=== PATIENT | female | born 2000 | race Caucasian/White ===

== ENCOUNTER 2019-05-03 18:12 | Observation (INO) | payer OTHER ==
[~2019-05-03] VITALS: Ht 154.9 cm; Wt 58.4 kg
[2019-05-03] MEDS ORDERED: FAMOTIDINE 20 MG TABLET ONE (19:15)
[2019-05-03] MEDS ORDERED: ONDANSETRON ODT 4 MG ONE (19:16)
[2019-05-03] MEDS ORDERED: MAALOX/HYOSCYAMINE/LIDOCAINE 45 ML BTL ONE (19:16)
--- NOTE | 2019-05-03 19:23 | NUR ---
MEDICATED PER EMAR UA SENT
[2019-05-03] MEDS ORDERED: MAALOX/HYOSCYAMINE/LIDOCAINE 45 ML BTL PO ONE (19:30)
[2019-05-03] MEDS ORDERED: PLEASE ENTER ALLERGIES MC SCH (19:30)
[2019-05-03] MEDS ORDERED: FAMOTIDINE 20 MG TABLET PO ONE (19:30)
[2019-05-03] MEDS ORDERED: ONDANSETRON ODT 4 MG PO ONE (19:30)
--- NOTE | 2019-05-03 19:40 | NUR ---
LAB AT BEDSIDE
--- NOTE | 2019-05-03 19:45 | NUR ---
WITH REASSESSMENT-PATIENT REPORTS "I STILL FEEL NAUSEATED 7AND MY ABD PAIN IS STILL 7/10 (UCHANGED) PROVIDER MADE AWARE
[2019-05-03 19:53] LABS: ALANINE AMINOTRANSFERASE 28 U/L (12-78); ALBUMIN 4.1 g/dL (3.4-5.0); ANION GAP 11 mmol/L (5-15); CALCIUM 9.7 mg/dL (8.5-10.1); CHLORIDE 104 mmol/L (98-107); CREATININE 0.86 mg/dL (0.55-1.02)
[2019-05-03 19:58] LABS: ALKALINE PHOSPHATASE 77 U/L (45-117); BILIRUBIN,TOTAL 0.6 mg/dL (0.2-1.0); TOTAL PROTEIN 8.3 g/dL (6.4-8.2)
[2019-05-03] MEDS ORDERED: DICYCLOMINE 10 MG/ML, 2ML IM ONE (20:00)
[2019-05-03] MEDS ORDERED: PROMETHAZINE 25 MG/ML, 1ML IM ONE ×2 (20:00)
[2019-05-03 20:05] LABS: MEAN CORPUSCULAR HEMOGLOBIN 31.2 pg (27.0-34.8); MEAN CORPUSCULAR VOLUME 89.3 fL (80-100); MEAN PLATELET VOLUME 7.8 fL (7.4-10.4); PLATELET COUNT 301 x10^3/uL (130-400); RED CELL DISTRIBUTION WIDTH 12.6 % (9.6-15.2)
[2019-05-03 20:09] LABS: MICROSCOPIC INDICATED
[2019-05-03] MEDS ORDERED: DICYCLOMINE 10 MG/ML, 2ML ONE (20:09)
[2019-05-03] MEDS ORDERED: PROMETHAZINE 25 MG/ML, 1ML ONE (20:09)
[2019-05-03 20:20] LABS: CULTURE INDICATED? NO
--- NOTE | 2019-05-03 20:20 | NUR ---
Medicated per emar for continued nausea/abd pain
[2019-05-03 20:25] LABS: BASOPHILS # (AUTO) 0.02 x10^3/uL (0-0.1); BASOPHILS % (AUTO) 0 % (0-1); EOSINOPHILS # (AUTO) 0.03 x10^3/uL (0-0.4); EOSINOPHILS % (AUTO) 0 % (1-7); LYMPHOCYTES # (AUTO) 0.58 x10^3/uL (1-3.4); LYMPHOCYTES % (AUTO) 3 % (22-44); MD SCAN; MONOCYTES # (AUTO) 0.45 x10^3/uL (0.2-0.8); MONOCYTES % (AUTO) 2 % (2-9); NEUTROPHILS # (AUTO) 17.74 x10^3/uL (1.8-6.8); NEUTROPHILS % (AUTO) 94 % (42-75)
--- NOTE | 2019-05-03 20:29 | NUR ---
Note bipin in ED - 05/03/19 at 2030 by RFRUHLING avitene pressure dressing applied
[2019-05-03] MEDS ORDERED: SODIUM CHLORIDE 0.9% 1,000ML IVBOLUS ONE (20:30)
[2019-05-03] MEDS ORDERED: SODIUM CHLORIDE FLUSH 10ML SYR IVF ONE (20:30)
--- NOTE | 2019-05-03 20:42 | NUR ---
piv placed-1l ns strated per emar
[2019-05-03 20:43] VITALS: BP 132/78
[2019-05-03] MEDS ORDERED: OMNIPAQUE 350 MG/ML, 100ML BOTTLE ONE (20:56)
[2019-05-03] MEDS ORDERED: CEFOTETAN PMX 1GM/50ML 50 ML IVPB ONE (21:30)
[2019-05-03] MEDS ORDERED: CEFOTETAN PMX 1GM/50ML 50 ML ONE (21:40)
[2019-05-03] MEDS ORDERED: BUPIVACAINE/EPI 0.5% 1:200K ONE ×2 (21:42→21:52)
--- NOTE | 2019-05-03 21:43 | NUR ---
1l ns complete last meal 11am abx administered per emar at 2142 Report to Royce morgan in [place] @ 2139
[2019-05-03] MEDS ORDERED: ONDANSETRON 2MG/ML, 2ML ONE ×2 (21:45→22:22)
--- NOTE | 2019-05-03 21:51 | NUR ---
TRANSFER TO [place] WITH CEFOTAN AT 2150
--- NOTE | 2019-05-03 21:51 | NUR ---
medicated per emar with 4mg of zofran for continued nausea prior to transfer to [place]
[2019-05-03] MEDS ORDERED: MIDAZOLAM 1 MG/ML, 2ML ONE (22:15)
[2019-05-03] MEDS ORDERED: FENTANYL PF 100 MCG/2ML ONE (22:15)
[2019-05-03] MEDS ORDERED: SUCCINYLCHOLINE 20 MG/ML, 10ML ONE (22:22)
[2019-05-03] MEDS ORDERED: PROPOFOL 10 MG/ML, 50ML ONE (22:22)
[2019-05-03] MEDS ORDERED: DEXAMETHASONE 4 MG/ML, 1ML ONE (22:22)
[2019-05-03] MEDS ORDERED: ROCURONIUM 10 MG/ML,10ML ONE (22:22)
[2019-05-03] MEDS ORDERED: PROPOFOL 10 MG/ML, 20ML ONE (22:22)
[2019-05-03] MEDS ORDERED: SUGAMMADEX 200 MG/2 ML IVPush ONE (22:46)
[2019-05-03] MEDS ORDERED: MEPERIDINE/PF 50 MG/ML ONE (22:53)
[2019-05-03] MEDS ORDERED: ACETAMINOPHEN 325 MG TABLET PO PRN (23:00)
[2019-05-03] MEDS ORDERED: hydrALAzine 20 MG/ML, 1ML IV PRN (23:00)
[2019-05-03] MEDS ORDERED: DIAZEPAM 5 MG/ML, 2ML IVPush PRN (23:00)
[2019-05-03] MEDS ORDERED: PROMETHAZINE 25 MG/ML, 1ML IV PRN (23:00)
[2019-05-03] MEDS ORDERED: ONDANSETRON 2MG/ML, 2ML IVPush ONE (23:00)
[2019-05-03] MEDS ORDERED: ALBUTEROL SULFATE 2.5 MG/3 ML NPPB PRN (23:00)
[2019-05-03] MEDS ORDERED: HYDROmorphone 2 MG/ML, 1ML IVPush PRN (23:00)
[2019-05-03] MEDS ORDERED: KETOROLAC 30 MG/1 ML IV PRN (23:00)
[2019-05-03] MEDS ORDERED: OXYcodone 5 MG/5 ML ORAL.SOL UDC PO PRN (23:00)
[2019-05-03] MEDS ORDERED: MEPERIDINE/PF 25MG/0.5ML IVPush PRN (23:00)
[2019-05-03] MEDS ORDERED: FENTANYL PF 100 MCG/2ML IV PRN (23:00)
[2019-05-03] MEDS ORDERED: LABETALOL 5MG/ML, 20ML IV PRN (23:00)
[2019-05-03] MEDS ORDERED: KETOROLAC 30 MG/1 ML ONE ×2 (23:01→23:30)
[2019-05-04] MEDS ORDERED: OXYC5TAB2 PO (00:02)
[2019-05-04] MEDS ORDERED: IBUP-1221 PO (00:05)
[2019-05-04] MEDS ORDERED: ACET-1600 PO (00:05)
[2019-05-04] MEDS ORDERED: ONDANSETRON 2MG/ML, 2ML IVPush PRN (00:30)
[2019-05-04] MEDS ORDERED: OXYcodone IR 5MG TABLET PO PRN (00:30)
[2019-05-04] MEDS ORDERED: ACETAMINOPHEN 500 MG TABLET PO SCH (00:30)
[2019-05-04] MEDS ORDERED: IBUPROFEN 200 MG TABLET PO SCH (00:30)
[2019-05-04] MEDS ORDERED: PROMETHAZINE 25 MG SUPP PR PRN (00:30)
[2019-05-04] MEDS ORDERED: ONDANSETRON ODT 4 MG PO PRN (00:30)
[2019-05-04] MEDS ORDERED: SODIUM CHLORIDE 0.9% 1,000 ML IV SCH (00:30)
[2019-05-04] MEDS ORDERED: MORPHINE SULFATE 4 MG/ML, 1ML IVPush PRN (00:30)
== END 2019-05-04 02:18 | disposition home or self-care (01) ==
LOC: ED 21:42 → EDIP 21:51 → INTOOBSV 21:51 → 4NE 23:18
PROVIDERS: ADMIT Surgery; ATTEND Surgery
DX: K35.80 Unspecified acute appendicitis (principal); K52.89 Other specified noninfective gastroenteritis and colitis; D72.829 Elevated white blood cell count, unspecified
CPT/HCPCS: 36415; 44970; 74177; 80053; 81001; 83690; 84703; 85025; 96372; 96374; 96375; 99284; G0378; J0330; J0500; J1100; J1885; J2175; J2250; J2405; J2550; J2704; J3010; J3490; J7030; Q0162; Q9967